=== PATIENT | male | born 1945 | race Caucasian/White ===

== ENCOUNTER 2018-01-22 10:29 | Outpatient (CLI) | payer MEDICARE ==
[~2018-01-22 10:29] MED LIST: Gadobenate Dimeglumine 529 MG/1 ML (20ML VIAL) ONE
--- NOTE | 2018-01-22 13:20 | RAD ---
SKULL TWO VIEWS: HISTORY: A 72-year-old male with a history of prior surgery on the left side of the calvarium, for MRI safety. FINDINGS: AP and lateral views of the skull demonstrate no evidence for metal foreign body or surgical vascular clips or other significant acute process. IMPRESSION: 1. Unremarkable two view skull. 2. No significant metal foreign body or surgical vascular clips. POS: OFF
--- NOTE | 2018-01-22 14:20 | MRI ---
MRI BRAIN WITH AND WITHOUT CONTRAST: Technique: Multiplanar, multisequence MRI images were obtained of the brain. Post gadolinium images o btained with administration of IV MultiHance. Internal auditory canal protocol was followed. Indication: Hearing loss, worse on the right. FINDINGS: The ventricles are upper normal size. Mild chronic ischemic white matter change is noted. Review of the internal auditory canal reveals an enhancing mass at the right cerebellar pontine angle with extension into the right internal auditory canal. The extra cannicular portion of this mass exh ibits somewhat heterogeneous enhancement and measures up to 1.6 cm. The left 7th and 8th cranial nerves are well seen. No other abnormal enhancement identified. The intracranial internal carotid arteries and cerebral arteries show flow voids. Mucosal edema in th e floor of the right maxillary sinus suggests mucous retention cyst. IMPRESSION: 1. Enhancing mass involving the right internal auditory canal. The extra cannicular portion of this m ass measures 1.6 cm AP dimension in the axial plane. 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 2. Mild ventriculomegaly. 3. Mild chronic ischemic white matter change. 4. Mucous retention cyst in the floor of the right maxillary antrum measuring up to 2 cm. There is al so mucosal edema in the floor of the left maxillary sinus. POS: [facility]
== END 2018-01-22 10:30 | disposition home or self-care (01) ==
LOC: BICMRI 10:29
PROVIDERS: ATTEND Otolaryngology Otology & Neurotology
DX: H90.5 Unspecified sensorineural hearing loss (principal); G93.89 Other specified disorders of brain; M27.40 Unspecified cyst of jaw; H61.891 Other specified disorders of right external ear
CPT/HCPCS: 70250; 70553; 82565; A9579

== ENCOUNTER 2019-05-09 15:31 | Outpatient (CLI) | payer MEDICARE ==
--- NOTE | 2019-05-09 18:06 | MRI ---
MRI OF THE BRAIN WITHOUT AND WITH CONTRAST: 05/09/19 COMPARISON: None. HISTORY: Acoustic neuroma removed in 2019. Follow-up to the acoustic neuroma. TECHNIQUE: Multiplanar and multisequence MR images were obtained of the brain without and with IV contrast. Thin cuts through the internal auditory canals were performed without and with contrast. FINDINGS: Comparison is 01/22/18. Postsurgical changes are seen in the right mastoid region. 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 There is visualization of two nerves in the left internal auditory can al but only one nerve is seen on the right. The other may have been sacrificed during the resection o f the mass. No abnormal enhancement is seen in the cerebral pontine angle or along the course of the remaining nerve. High T1 signal within the region of the right mastoid air cells and temporal bone likely represents f at. There is no evidence of hydrocephalus or intracranial hemorrhage. The expected flow voids are present . The corpus callosum, pituitary, and craniocervical junction are unremarkable. The visualized paranasal sinuses are well aerated. IMPRESSION: Postsurgical changes in the right temporal bone and with no evidence of residual or recurrent tumor i n the right cerebral pontine angle or along the course of the vestibular/acoustic nerves. POS: C
== END 2019-05-09 15:32 | disposition home or self-care (01) ==
LOC: SCSMRI 15:31
PROVIDERS: ATTEND Otolaryngology Otology & Neurotology
DX: H90.5 Unspecified sensorineural hearing loss (principal); D33.3 Benign neoplasm of cranial nerves; Z98.890 Other specified postprocedural states
CPT/HCPCS: 70553; 82565

== ENCOUNTER 2021-11-22 08:06 | Outpatient (CLI) | payer MEDICARE | END 2021-11-22 08:07 | disposition home or self-care (01) | LOC: LABBT 08:06 | PROVIDERS: ATTEND Neurological Surgery | DX: Z20.822 Contact with and (suspected) exposure to COVID-19 (principal) | CPT/HCPCS: 87811 ==

== ENCOUNTER 2021-11-25 05:40 | Day surgery (SDC) | payer MEDICARE ==
[2021-11-23 12:16] VITALS: BMI 29.0
[2021-11-25] MEDS ORDERED: Ketamine 50 MG/ML (10ML VIAL) ONE (06:13)
[2021-11-25] MEDS ORDERED: Midazolam HCl 2 mg/2 ml Vial ONE (06:13)
[2021-11-25] MEDS ORDERED: fentaNYL Citrate/PF 100 MCG/2 ML SYRINGE ONE (06:13)
[2021-11-25] MEDS ORDERED: Thrombin 5000 UNITS/5 ML VIAL ONE (06:30)
[2021-11-25] MEDS ORDERED: Levofloxacin 500 mg/D5W 100 ml Premix Bag ONE (06:51)
[2021-11-25] MEDS ORDERED: Clindamycin/D5W 900 mg/50 ml Premix Bag ONE (06:51)
[2021-11-25] MEDS ORDERED: Phenylephrine 10 MG/ML VIAL ONE (07:12)
[2021-11-25] MEDS ORDERED: PROPOFOL 200 MG/20 ML VIAL ONE (07:12)
[2021-11-25] MEDS ORDERED: Rocuronium Bromide 10 MG/ML (10ML VIAL) ONE (07:12)
[2021-11-25] MEDS ORDERED: Dexamethasone 20 MG/5 ML VIAL ONE (07:12)
[2021-11-25] MEDS ORDERED: Neostigmine Methylsulfate 3 MG/3 ML SYRINGE ONE (07:12)
[2021-11-25] MEDS ORDERED: Glycopyrrolate 0.2 MG/ML 5 ML SYRINGE ONE (07:12)
[2021-11-25] MEDS ORDERED: Lidocaine 1% PF 5 ML VIAL ONE (07:12)
[2021-11-25] MEDS ORDERED: ePHEDrine 50 MG/ML VIAL ONE (07:12)
[2021-11-25] MEDS ORDERED: Ondansetron PF 4 MG/2 ML Vial ONE (07:12)
[2021-11-25] MEDS ORDERED: HYDROmorphone 2 MG/ML VIAL ONE (07:45)
[2021-11-25] MEDS ORDERED: SUGAMMADEX SODIUM 200 MG/2 ML VIAL ONE (08:29)
[2021-11-25] MEDS ORDERED: Tamsulosin HCl 0.4 MG CAP ONE (09:39)
== END 2021-11-25 11:45 | disposition home or self-care (01) ==
LOC: SDC 05:40
PROVIDERS: ATTEND Neurological Surgery
PROC: 0RG20A0 Fusion of 2 or more Cervical Vertebral Joints with Interbody Fusion Device, Anterior Approach, Anterior Column, Open Approach (ICD-10-PCS; principal; 2021-11-25)
DX: M50.122 Cervical disc disorder at C5-C6 level with radiculopathy (principal); M48.02 Spinal stenosis, cervical region; I10 Essential (primary) hypertension; E78.5 Hyperlipidemia, unspecified; G51.0 Bell's palsy; H93.3X2 Disorders of left acoustic nerve; Z87.891 Personal history of nicotine dependence; Z79.899 Other long term (current) drug therapy; Z88.0 Allergy status to penicillin
CPT/HCPCS: 20930; 20936; 22551; 22552; 22845; 22853 ×2; 76000; C1713 ×5; J1100; J1170; J1956; J2250; J2370; J2405; J2704; J3490